=== PATIENT | male | born 1990 | race Caucasian/White ===

== ENCOUNTER 2016-08-29 06:44 | Emergency (ER) | payer OTHER ==
[~2016-08-29] VITALS: Ht 172.7 cm; Wt 70.3 kg
[2016-08-29 07:09] VITALS: BP 124/85
--- NOTE | 2016-08-29 07:21 | ED GENERAL ADULT ---
See Addendum History of Present Illness General Chief Complaint: Low Back Pain/Injury Stated Complaint: BACK PAIN Source: patient Exam Limitations: no limitations Vital Signs & Intake/Output Vital Signs & Intake/Output Vital Signs Date Time Temp Pulse Resp B/P Pulse O2 O2 Flow FiO2 Ox Delivery Rate 08/29 708 98.9 75 18 124/85 99 Room Air Allergies Coded Allergies: No Known Allergies (08/29/16) Reconcile Medications No Known Home Medications Triage Note: 26 Y/O MALE C/O PAIN ACROSS LOWER BACK X 2 DAYS S/P "LIFTING A PALLET". DENIES TAKING MEDS FOR PAIN. DENIES THIS BEING WORKMANS COMP. Triage Nurses Notes Reviewed? yes Onset: Abrupt Duration: day(s): Timing: recent history HPI: 08/29/16 7 am 18-year-old male presents to the emergency Department with right-sided low back pain. The patient states he was in his usual state of health until approximately 3 days ago he was lifting a pallet at work and developed a sudden onset of severe right-sided low back pain. Dances symptoms was abrupt, the duration was approximately 3 days ago, the severity significant as his symptoms required to go to the emergency department for care. He denies bowel or bladder dysfunction. No fever. No lower extremity weakness. No abdominal pain. Past History Travel History Traveled to [place] past 21 day No Medical History Any Pertinent Medical History? 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 No Review of Systems Review of Systems Constitutional: Denies: fever. EENTM: Denies: visual changes. Respiratory: Denies: short of breath. Cardiovascular: Denies: chest pain. GI: Denies: abdominal pain. Genitourinary: Denies: dysuria, hematuria. Musculoskeletal: Reports: back pain. Skin: Denies: rash. Neurological/Psychological: Denies: headache. Hematologic/Endocrine: Denies: bleeding. Immunologic/Allergic: Reports: no symptoms. Physical Exam Physical Exam General Appearance: well developed/nourished, alert, awake, anxious, mild distress Head: atraumatic, normal appearance Eyes: Bilateral: normal appearance, PERRL. Ears, Nose, Throat: normal pharynx, normal ENT inspection Neck: normal inspection, supple Respiratory: normal breath sounds, chest non-tender, no respiratory distress Cardiovascular: regular rate/rhythm Peripheral Pulses: 4+ radial (R), 4+ radial (L) Gastrointestinal: non-tender Back: decreased range of motion Extremities: normal inspection, normal range of motion, no edema Neurologic/Psych: no motor/sensory deficits, awake, alert, oriented x 3 Skin: intact, normal color, warm/dry Core Measures ACS in differential dx? No CVA/TIA Diagnosis: No Severe Sepsis Present: No Septic Shock Present: No Progress Differential Diagnoses I considered the following diagnoses in my evaluation of the patient: [ Transverse myelitis, disc herniation, low back strain, renal colic, arthritis, epidural abscess, cauda equina syndrome] Plan of Care: Current Medications Sig/Ashlyn Start time Last Medication Dose Stop Time Status Admin Cyclobenzaprine HCl 10 MG ONCE ONE 08/29 744 UNVr (Flexeril 10MG Tab) 08/29 745 Ketorolac 60 MG ONCE ONE 08/29 0645 UNVr Tromethamine 08/29 745 (Toradol) Initial ED EKG: none Comments: 08/29/16 7:45 am The patient was treated with IM Toradol and po Flexeril. He will be wrapped evaluated. Departure Departure Disposition: HOME OR SELF CARE Condition: Stable Clinical Impression Primary Impression: Back strain Referrals: PATIENT HAS NO PRIMARY CARE DR (PCP/Family) Departure Forms: Customer Survey General Discharge Information Prescriptions: Current Visit Scripts No Known Home Medications Comments 08/29/16 8:34 AM Patient feels better. Ambulating without difficulty. He was discharged. Critical Care Note Critical Care Note Critical Care Time: non-applicable
[2016-08-29] MEDS ORDERED: CYCLOBENZAPRINE10 M1 PO (08:39)
[2016-08-29] MEDS ORDERED: MOBIC15 M1 PO (08:39)
== END 2016-08-29 08:41 ==
LOC: ERH 06:44
DX: S39.012A Strain of muscle, fascia and tendon of lower back, initial encounter (principal); X50.0XXA Overexertion from strenuous movement or load, initial encounter; Y93.89 Activity, other specified
CPT/HCPCS: 96372; J1885